=== PATIENT | female | born 1985 | race Caucasian/White ===

== ENCOUNTER → 2017-11-19 12:40 | Outpatient (CLI) | payer MEDICARE | END | disposition home or self-care (01) | LOC: D.RT 12:40 | DX: J45.909 Unspecified asthma, uncomplicated (principal) ==

== ENCOUNTER → 2017-12-31 13:35 | Outpatient (CLI) | payer MEDICARE | END | disposition home or self-care (01) | LOC: D.RT 11-04 10:00 → D.RAD 13:35 | DX: M26.609 Unspecified temporomandibular joint disorder, unspecified side (principal) ==

== ENCOUNTER → 2018-05-19 15:42 | Outpatient (CLI) | payer MEDICARE ==
[~2018-05-19 15:42] MED LIST: BELSOMRA20 MG PO; LAMICTAL200 MG PO; SEROQUEL200 MG PO; XANAX1 MG PO; ZOLOFT100 MG PO
[2018-06-30 13:42] VITALS: BMI 37.1
== END | disposition home or self-care (01) ==
LOC: D.US 15:42
DX: Z30.431 Encounter for routine checking of intrauterine contraceptive device (principal)

== ENCOUNTER 2018-06-30 05:00 | Day surgery (SDC) | payer MEDICARE ==
[2018-06-29 15:42] LABS: BASOPHILS 0.3 % (0-2); EOSINOPHILS 3.2 % (0-7); HEMOGLOBIN 13.3 g/dL (12-16); IMMATURE GRANULOCYTES 0.7 % (0-5); LYMPHOCYTES 21.5 % (15-50); MCH 29.6 pg (26.0-34.0); MCHC 34.1 g/dL (31.0-37.0); MCV 86.9 fL (80.0-100.0); MEAN PLATELET VOLUME 9.1 fL (7.4-10.4); MONOCYTES 9.1 % (2-11); NEUTROPHILS 65.2 % (40-80); PLATELET COUNT 318 10x3/uL (130-400); RBC 4.49 10x6/uL (4.00-5.40); RDW 12.5 % (11.5-14.5); WBC 10.2 10x3/uL (4.8-10.8)
[2018-06-29 16:23] LABS: CALC OSMOLALITY 278 mosm/kg (275-300); CALCIUM 8.5 mg/dL (8.5-10.1); CARBON DIOXIDE 27.5 mmol/L (21.0-32.0); CHLORIDE - SERUM 102 mmol/L (98-107); CREATININE - SERUM 0.8 mg/dL (0.6-1.3); GLUCOSE 90 mg/dL (74-106); POTASSIUM - SERUM 3.8 mmol/L (3.5-5.1); SODIUM 139 mmol/L (136-145); UREA NITROGEN 14 mg/dL (7-18); eGFR NON AFRICAN AMERICAN 88 mL/min (90-120)
[2018-06-30] VITALS (13 sets, daily range): BP systolic 101–119; BP diastolic 57–77; Ht 152.4 cm; Wt 86.4 kg
[~2018-06-30] VITALS: Ht 152.4 cm; Wt 86.4 kg
--- NOTE | ~2018-06-30 | DS ---
PATIENT:SOFYA PURDY :87 MEDICAL RECORD: [id number] DISCHARGE SUMMARY ADMISSION DATE: 06/30/18 DISCHARGE DATE: 07/01/18 DATE OF ADMISSION: 06/30/2018 DATE OF DISCHARGE: 07/01/2018 ADMISSION DIAGNOSES: 1. Menorrhagia. 2. Retained intrauterine device. DISCHARGE DIAGNOSES: 1. Menorrhagia. 2. Retained intrauterine device. PROCEDURES: 1. Laparoscopic subtotal hysterectomy with bilateral salpingo-oophorectomy. 2. Removal of IUD. ATTENDING: Nelida Aguilar MD HISTORY OF PRESENT ILLNESS AND INDICATION FOR THE SURGERY: See the history and physical that is in the chart. SUMMARY OF HOSPITALIZATION: The patient was admitted and underwent procedure without difficulty. On the day of surgery, she is having difficulties voiding, and by postop day #1 states that she does not feel her bladder empties completely. Postvoid residual is a minimum of 80 cc. She has begun on Urecholine and the next postvoid residual is 50 cc. I am discharging her home with prescription of Urecholine, Percocet and ibuprofen. She will follow up in the clinic in 2 weeks. Standard postoperative precautions have been reviewed. TRANSINT:[id number] Voice Confirmation ID: [id number] DOCUMENT ID: [id number] NELIDA AGUILAR MD at 1615 CC: [id number] DICTATION DATE: 07/01/18 1438 RELIGION DEPARTMENT CHAIR: 07/02/18 0853 [facility] 07/01/[address] [address]
--- NOTE | ~2018-06-30 | OP ---
PATIENT NAME: SOFYA PURDY MEDICAL RECORD: [id number] :87 LOCATION:[facility] ADMISSION DATE: SURGEON: ROLANDO AGUILAR MD DATE OF OPERATION: 06/30/2018 PREOPERATIVE DIAGNOSES: 1. History of menorrhagia to anemia. 2. Retained IUD. POSTOPERATIVE DIAGNOSES: 1. History of menorrhagia to anemia. 2. Retained IUD. PROCEDURE: 1. Removal of intrauterine device. 2. Laparoscopic subtotal hysterectomy with bilateral salpingo-oophorectomy. SURGEON: Rolando Aguilar MD FRONT LOADER RESIDENTIAL DRIVER: Dr. Mcclelland LOOM WINDER TENDER: Esperanza Berrios ANESTHESIOLOGIST: Dr. Solorzano ANESTHETIC: General. FINDINGS: Uterus is enlarged and boggy. There were adhesions of the right perineum and bladder to the cervix. What was visualized of the abdominal anatomy was unremarkable. SPECIMENS REMOVED: 1. IUD. 2. Uterus morcellated with portions of cervix and tubes bilaterally. SPECIMEN DISPOSITION: 1. Discarded. 2. To pathology. ESTIMATED BLOOD LOSS: Less than or equal to 75 cc. FLUIDS: 1300 cc of lactated Ringer's. URINE OUTPUT: 20 cc of clear urine. COMPLICATIONS: None. DRAINS: Contreras to gravity. INDICATIONS: The patient is a 33-year-old female with a history of menorrhagia and menorrhagia to anemia requiring transfusion. The patient has used an IUD for the last several years. The patient is requesting definitive therapy for history of dysfunctional uterine bleeding. Risks, benefits as well as limitations of this procedure have been described to the patient and she acknowledges and wishes to move forward. OPERATIVE REPORT [id number] SOFYA PURDY After informed consent was assured, the patient was taken to the operating room, anesthetic was obtained. The patient was frog legged on the table. Speculum introduced and with Tommy stone forceps, the lower portion of the IUD was grasped and removed. The Mirena IUD was discarded at this time. The patient was now positioned supine on the table and prepped and draped. Incision was made at the umbilicus to accommodate a 5-mm trocar, which was inserted without difficulty and pneumoperitoneum developed. With the patient in steep Trendelenburg and Contreras catheter having been started during the prep, the patient now has accessory ports placed in the right and left lower quadrants. The right lower quadrant is a 10-12 port, the left lower quadrant is a 5-mm port. For the right hand port, a grasper was inserted and the left tube elevated. Using a coagulation cutter, the mesosalpinx was serially compressed, coagulated, and the tissue . Tube was removed at its attachment to the fundus and passed off the field. The regrasping of the uterus at the left cornual region facilitates compression, coagulation, and incision of the uterine ovarian ligament. After this was performed, the round ligament was opened and the broad ligament dissected to the midline of the bladder flap. Posterior leaf was opened and the vessels of the left side compressed, coagulated, and . Attention was now directed to the right side. Right tube was elevated from the left and in a like manner the tube freed from its attachments to the adnexa. The coagulation cutter was then used to go across the uteroovarian and round ligaments. The anterior leaf of the broad ligament was opened. Using an TELLO Harmonic scalpel, the dissection of the adhesions and of the bladder to the cervix was begun on the right. The posterior leaf was . The vessels on the right side were skeletonized. Using a PK technology and coagulation cutter, the vessels of the right side were now compressed, coagulated, and . Dissection of the uterus from the cervix begins on the left. This dissection was carried over to the right. Once the uterus was removed, endocervical canal was inspected and the Tello Harmonic scalpel placed within it and activated. The endocervical canal was cauterized. Uterus was now removed in several portions with a PlasmaSORD morcellator. This device was placed through the incision that was made for the 10-12 port. After the uterus has been removed, the 10-12 port replaces the PlasmaSORD. The straight portions of the uterus were removed through this port. The pelvis was now copiously irrigated. Inspection of the cervical stump revealed excessive tissue in excess of desired target on the patient's right. This was elevated with a single tooth tenaculum and removed with the Harmonic scalpel. Cervical canal was then cauterized another time and bleeding vessels identified and cauterized. Sponge, lap, and needle counts correct times 2. The pneumoperitoneum was released and the accessory ports were removed. The primary trocars were removed and all sites closed with a subcuticular stitch. The patient was taken to the recovery room in stable condition. TRANSINT:[id number] Voice Confirmation ID: [id number] DOCUMENT ID: [id number] ROLANDO AGUILAR MD at 1431 CC: [id number] DICTATION DATE: 06/30/18 1041 COORDINATOR VOLUNTEER SERVICES: 06/30/18 1213 [facility] [address] [id number]
[2018-06-30] MEDS ORDERED: LAMICTAL200 MG PO (05:52)
[2018-06-30] MEDS ORDERED: BELSOMRA20 MG PO (05:52)
[2018-06-30] MEDS ORDERED: ZOLOFT100 MG PO (05:52)
[2018-06-30] MEDS ORDERED: SEROQUEL200 MG PO (05:53)
[2018-06-30] MEDS ORDERED: XANAX1 MG PO (05:53)
[2018-06-30 06:18] LABS: HCG URINE NEGATIVE (NEGATIVE)
[2018-07-01] VITALS: BP 101/56
[2018-07-01 04:07] VITALS: BP 94/50
[2018-07-01] MEDS ORDERED: URECHOLINE25 MG PO (15:01)
== END 2018-07-01 16:16 | disposition home or self-care (01) ==
LOC: D.OPS 05:00 → D.LD 05:00 → D.PAN 07:30 → D.OPS 07:30 → D.LD 11:36 → D.SDCHOLD 07-01 16:14 → D.LD 07-01 16:15 → D.OPS 07-01 16:16
PROVIDERS: Obstetrics & Gynecology
DX: N93.8 Other specified abnormal uterine and vaginal bleeding (principal)

== ENCOUNTER 2018-07-15 16:46 | Emergency (ER) | payer MEDICARE ==
[~2018-07-15] VITALS: Ht 152.4 cm; Wt 86.4 kg
[~2018-07-15 16:46] MED LIST changes: +URECHOLINE25 MG PO
[2018-07-15 17:07] VITALS: Ht 152.4 cm; Wt 86.4 kg
[2018-07-15 19:47] VITALS: BP 119/68
== END 2018-07-15 19:47 | disposition home or self-care (01) ==
LOC: D.ER 16:46
DX: R51 Headache (principal); Y04.2XXA Assault by strike against or bumped into by another person, initial encounter; Y93.89 Activity, other specified; Y92.019 Unspecified place in single-family (private) house as the place of occurrence of the external cause; J45.909 Unspecified asthma, uncomplicated; K21.9 Gastro-esophageal reflux disease without esophagitis; K58.9 Irritable bowel syndrome, unspecified